=== PATIENT | male | born 1995 | race Two or more races ===

== ENCOUNTER 2020-03-18 21:07 | Inpatient (IN) | payer MEDICAID, OTHER ==
[~2020-03-18] VITALS: Ht 162.6 cm; Wt 171.4 kg
[2020-03-18] MEDS ORDERED: methylPREDNISolone SOD SUCC 125 MG/2 ML VL IV ONE (22:15)
[2020-03-18] MEDS ORDERED: cefTRIAXone 1GM/50ML D5W 50 ML IV ONE (22:15)
[2020-03-18] MEDS ORDERED: ASCORBIC ACID 500 MG TAB PO ONE (22:15)
[2020-03-18] MEDS ORDERED: DOXYCYCLINE 100 MG TAB/CAP PO ONE (22:15)
[2020-03-18 23:09] LABS: Basophils # (auto) 0 10 ^3/uL (0-0.2); Basophils % (auto) 0.3 % (0.0-2.0); Eosinophils # (auto) 0.2 10 ^3/uL (0-0.8); Eosinophils % (auto) 4.9 % (0.0-7.0); Hematocrit 44.4 % (41.0-53.0); Hemoglobin 14.5 g/dL (13.5-17.5); Lymphocytes # (auto) 1.1 10 ^3/uL (0.4-5.4); Lymphocytes % (auto) 24.5 % (10.0-50.0); Mean Corpuscular Hemoglobin 28.7 pg (28.0-32.0); Mean Corpuscular Hgb Conc. 32.6 g/dL (32.0-36.0); Mean Corpuscular Volume 87.8 fL (80.0-100.0); Monocytes # (auto) 0.2 10 ^3/uL (0-1.3); Monocytes % (auto) 4.8 % (0.0-12.0); Neutrophils # (auto) 3.1 10 ^3/uL (1.6-8.6); Neutrophils % (auto) 65.5 % (37.0-80.0); Nucleated Red Blood Cells % 0.1 %; Platelet Count (auto) 284 10^3/uL (140-450); Red Blood Cells 5.06 10^6/uL (4.5-5.90); Red Cell Distribution Width 15.7 % (11.8-14.3); White Blood Cell 4.7 10^3/uL (4.4-10.8)
[2020-03-18 23:25] LABS: Alanine Aminotransferase 70 U/L (16-61); Albumin 2.8 g/dL (3.4-5.0); Anion Gap 5 (5-15); Aspartate Aminotransferase 95 U/L (15-37); BUN/Creatinine Ratio 8.1; Blood Urea Nitrogen 6 mg/dL (7-18); Calcium 7.7 mg/dL (8.5-10.1); Carbon Dioxide 30 mmol/L (21-32); Chloride 105 mmol/L (98-107); GFR African American 167 mL/min; GFR Non-African American 138 mL/min; Glucose 92 mg/dL (74-106); Potassium 3.4 mmol/L (3.5-5.1); Sodium 140 mmol/L (136-145)
[2020-03-18 23:34] LABS: Alkaline Phosphatase 68 U/L (45-117); Bilirubin, Total 0.7 mg/dL (0.2-1.0); Total Protein 7.1 g/dL (6.4-8.2)
[2020-03-18] MEDS ORDERED: SODIUM CHLORIDE 0.9% 1,000 ML IV ONE (23:45)
[2020-03-18] MEDS ORDERED: IOHEXOL 350 MG/ML 100ML IJ ONE (23:53)
[2020-03-19] MEDS ORDERED: diphenhdrAMINE HCL 50 MG/1 ML VL IV ONE (00:30)
[2020-03-19] MEDS ORDERED: methylPREDNISolone SOD SUCC 125 MG/2 ML VL IV ONE (00:45)
[2020-03-19] MEDS ORDERED: AZITHROMYCIN 500MG/ 250ML 250 ML IV ONE (01:45)
[2020-03-19] MEDS ORDERED: ENOXAPARIN SOD 100 MG/1 ML SYRINGE SC ONE (01:45)
[2020-03-19] MEDS ORDERED: LORazepam 2MG/ML-1ML VIAL IV ONE (02:30)
[2020-03-19] MEDS ORDERED: ACETAMINOPHEN 500 MG TAB PO PRN (02:45)
[2020-03-19] MEDS ORDERED: DOCUSATE SOD 100 MG CAP PO PRN (02:45)
[2020-03-19] MEDS ORDERED: MORPHINE SULF INJ 2 MG/ML SYRINGE 1ML IV PRN (02:45)
[2020-03-19] MEDS ORDERED: HYDROcodone-ACET 5/325MG TAB PO PRN (02:45)
[2020-03-19] MEDS ORDERED: NITROGLYCERIN 0.4 MG SL TAB SL PRN (02:45)
[2020-03-19] MEDS ORDERED: ONDANSETRON HCL 4 MG/2 ML VIAL IV PRN (02:45)
[2020-03-19] MEDS ORDERED: POTASSIUM CHL 20 Meq TABLET PO ONE (03:00)
[2020-03-19 03:55] LABS: Magnesium 2.9 mg/dL (1.6-2.6)
[2020-03-19 04:03] LABS: CRP High Sensitivity 3.16 mg/dL (< 0.3)
[2020-03-19] MEDS: ALBUTEROL SULF HFA 90MCG INH 200DOSE IN SCH ×3 (06:00→22:26)
[2020-03-19 06:11] LABS: Urine Bacteria NONE SEEN /hpf (None Seen); Urine Blood Negative /uL (Negative); Urine WBC 3 /hpf (0 - 3)
[2020-03-19] MEDS: SODIUM CHLOR 0.9% PF (SALINE LOCK) 10ML VIAL/SYR IV SCH ×3 (06:18→21:55)
[2020-03-19 06:50] LABS: Alcohol, Urine < 3.0 mg/dL (0-10); Amphetamine Screen, Urine NEGATIVE (NEGATIVE); Barbiturate Scree,Urine NEGATIVE (NEGATIVE); Benzodiazephine Screen, Urine NEGATIVE (NEGATIVE); Cannabinoid Screen, Urine NEGATIVE (NEGATIVE); Cocaine Screen, Urine NEGATIVE (NEGATIVE); Opiate Scree,Urine NEGATIVE (NEGATIVE); Phencyclidine Screen, Urine NEGATIVE (NEGATIVE)
[2020-03-19 07:20] LABS: Basophils # (auto) 0 10 ^3/uL (0-0.2); Basophils % (auto) 0.4 % (0.0-2.0); Eosinophils # (auto) 0.1 10 ^3/uL (0-0.8); Eosinophils % (auto) 1.4 % (0.0-7.0); Hematocrit 45.9 % (41.0-53.0); Hemoglobin 14.8 g/dL (13.5-17.5); Lymphocytes # (auto) 0.6 10 ^3/uL (0.4-5.4); Lymphocytes % (auto) 13.3 % (10.0-50.0); Mean Corpuscular Hemoglobin 28.4 pg (28.0-32.0); Mean Corpuscular Hgb Conc. 32.3 g/dL (32.0-36.0); Monocytes # (auto) 0.1 10 ^3/uL (0-1.3); Monocytes % (auto) 2.4 % (0.0-12.0); Neutrophils # (auto) 3.7 10 ^3/uL (1.6-8.6); Neutrophils % (auto) 82.5 % (37.0-80.0); Nucleated Red Blood Cells % 0.4 %; Platelet Count (auto) 296 10^3/uL (140-450); Red Blood Cells 5.22 10^6/uL (4.5-5.90); Red Cell Distribution Width 15.7 % (11.8-14.3); White Blood Cell 4.5 10^3/uL (4.4-10.8)
[2020-03-19 07:22] LABS: BUN/Creatinine Ratio 8.8; Calcium 8.1 mg/dL (8.5-10.1); Magnesium 2.7 mg/dL (1.6-2.6); Potassium 3.9 mmol/L (3.5-5.1)
[2020-03-19] MEDS: DOXYCYCLINE 100MG/250ML 250 ML IV SCH ×2 (10:00→21:56)
[2020-03-19] MEDS: ENOXAPARIN SOD 40 MG/0.4 ML SYRINGE SC SCH (10:00)
[2020-03-19] MEDS ORDERED: ENOXAPARIN SOD 40 MG/0.4 ML SYRINGE SC SCH (10:00)
[2020-03-19] MEDS: DexAMETHasone SOD PHOS 10MG/1ML VIAL INJ IV SCH (10:00)
[2020-03-19] MEDS: MULTIPLE VITAMIN TAB PO SCH (10:00)
[2020-03-19] MEDS: ZINC SULFATE 220mg CAP or TAB PO SCH (10:00)
[2020-03-19] MEDS: CHOLECALCIFEROL (VITD3) 2,000 UNIT CAP PO SCH (10:00)
[2020-03-19] MEDS: BUDESONIDE (INHALATION) 180 MCG IH IN SCH ×2 (10:00→21:34)
[2020-03-19] MEDS: ASCORBIC ACID 1,000 MG TAB PO SCH (10:00)
[2020-03-19] MEDS: FAMOTIDINE 20 MG TAB PO SCH ×2 (10:00→21:55)
[2020-03-19] MEDS ORDERED: FUROSEMIDE 20 MG/2 ML VIAL IV ONE (14:30)
[2020-03-19 17:03] VITALS: BP 166/78
--- NOTE | 2020-03-19 19:45 | NUR ---
Opening Shift Note Assumed care of patient, awake and alert. No S/S of distress/SOB or pain. Instructed on POC and to call for assist PRN, will continue to monitor for changes Q1hr and PRN.
[2020-03-19 20:00] VITALS: BP 113/68
[2020-03-19 22:00] VITALS: BP 113/68
--- NOTE | 2020-03-19 22:50 | NUR ---
Sleeping Pill Patient requested a sleeping pill. [employer] hospitalist Jignesh hospitalist ordered Temazepam 15mg PO PRN HS.
[2020-03-20] VITALS (11 sets, daily range): BP systolic 102–135; BP diastolic 46–81
--- NOTE | 2020-03-20 03:17 | NUR ---
Convalescent Plasma Patient agreed to convalescent plasma, sign consents. Initial vitals take (check emar).
[2020-03-20] MEDS: SODIUM CHLOR 0.9% PF (SALINE LOCK) 10ML VIAL/SYR IV SCH ×3 (06:00→21:19)
--- NOTE | 2020-03-20 06:47 | NUR ---
Post 1hr Convalescent Plasma Patient tolerated transfusion well. See eMAR for vitals.
[2020-03-20] MEDS: BUDESONIDE (INHALATION) 180 MCG IH IN SCH ×2 (06:51→21:58)
[2020-03-20] MEDS: ALBUTEROL SULF HFA 90MCG INH 200DOSE IN SCH ×3 (06:51→21:58)
[2020-03-20 07:31] LABS: Calcium 8.5 mg/dL (8.5-10.1)
[2020-03-20 07:33] LABS: Basophils # (auto) 0 10 ^3/uL (0-0.2); Basophils % (auto) 0.1 % (0.0-2.0); Eosinophils # (auto) 0 10 ^3/uL (0-0.8); Hematocrit 41.2 % (41.0-53.0); Hemoglobin 13.5 g/dL (13.5-17.5); Lymphocytes # (auto) 1.1 10 ^3/uL (0.4-5.4); Lymphocytes % (auto) 16.9 % (10.0-50.0); Mean Corpuscular Hemoglobin 28.8 pg (28.0-32.0); Mean Corpuscular Hgb Conc. 32.7 g/dL (32.0-36.0); Monocytes # (auto) 0.7 10 ^3/uL (0-1.3); Monocytes % (auto) 10.5 % (0.0-12.0); Neutrophils # (auto) 4.7 10 ^3/uL (1.6-8.6); Neutrophils % (auto) 72.5 % (37.0-80.0); Nucleated Red Blood Cells % 0.4 %; Platelet Count (auto) 333 10^3/uL (140-450); Red Blood Cells 4.68 10^6/uL (4.5-5.90); Red Cell Distribution Width 15.3 % (11.8-14.3); White Blood Cell 6.4 10^3/uL (4.4-10.8)
[2020-03-20 07:34] LABS: BUN/Creatinine Ratio 19.4
[2020-03-20 07:46] LABS: Bilirubin, Total 0.7 mg/dL (0.2-1.0); Total Protein 7.1 g/dL (6.4-8.2)
--- NOTE | 2020-03-20 07:50 | NUR ---
OPENING NOTE ASSUMED CARE OF PT. ALERT AND ORIENTED. NO S/S OF SOB/DISTRESS NOTED. BED SET TO LOWEST POSITION/LOCKED. BEDSIDE RAILS UP X2, CALL LIGHT WITHIN REACH. INSTRUCTED PT TO CALL FOR ASSISTANCE. UPDATED ON POC. PT VERBALIZED UNDERSTANDING. WILL CONTINUE TO MONITOR Q 1HR AND PRN FOR CHANGES.
[2020-03-20] MEDS: DexAMETHasone SOD PHOS 10MG/1ML VIAL INJ IV SCH (09:56)
[2020-03-20] MEDS: FAMOTIDINE 20 MG TAB PO SCH ×2 (09:57→21:19)
[2020-03-20] MEDS: ZINC SULFATE 220mg CAP or TAB PO SCH (09:57)
[2020-03-20] MEDS: DOXYCYCLINE 100MG/250ML 250 ML IV SCH ×2 (09:57→21:19)
[2020-03-20] MEDS: FUROSEMIDE 20 MG/2 ML VIAL IV SCH (09:57)
[2020-03-20] MEDS: MULTIPLE VITAMIN TAB PO SCH (09:57)
[2020-03-20] MEDS: ASCORBIC ACID 1,000 MG TAB PO SCH (09:58)
[2020-03-20] MEDS: CHOLECALCIFEROL (VITD3) 2,000 UNIT CAP PO SCH (09:58)
[2020-03-20] MEDS: ENOXAPARIN SOD 40 MG/0.4 ML SYRINGE SC SCH (09:58)
--- NOTE | 2020-03-20 14:41 | NUR ---
Respiratory note: FOUND PATIENT ON 7L N/C. WITH EXTENSION. DECREASED TO 4L N/C. SPO2 95%
[2020-03-20] MEDS: TEMAZEPAM 15 MG CAP PO PRN (21:19)
[2020-03-21 05:00] VITALS: BP 124/81
[2020-03-21] MEDS: SODIUM CHLOR 0.9% PF (SALINE LOCK) 10ML VIAL/SYR IV SCH ×3 (06:23→21:44)
[2020-03-21 06:50] LABS: Basophils # (auto) 0 10 ^3/uL (0-0.2); Basophils % (auto) 0.4 % (0.0-2.0); Eosinophils # (auto) 0 10 ^3/uL (0-0.8); Eosinophils % (auto) 0.3 % (0.0-7.0); Hematocrit 42.3 % (41.0-53.0); Hemoglobin 13.7 g/dL (13.5-17.5); Lymphocytes # (auto) 1.4 10 ^3/uL (0.4-5.4); Lymphocytes % (auto) 21.2 % (10.0-50.0); Mean Corpuscular Hemoglobin 28.6 pg (28.0-32.0); Mean Corpuscular Hgb Conc. 32.3 g/dL (32.0-36.0); Mean Corpuscular Volume 88.4 fL (80.0-100.0); Monocytes # (auto) 0.6 10 ^3/uL (0-1.3); Monocytes % (auto) 8.9 % (0.0-12.0); Neutrophils # (auto) 4.5 10 ^3/uL (1.6-8.6); Neutrophils % (auto) 69.2 % (37.0-80.0); Nucleated Red Blood Cells % 0.2 %; Platelet Count (auto) 364 10^3/uL (140-450); Red Blood Cells 4.78 10^6/uL (4.5-5.90); Red Cell Distribution Width 15.8 % (11.8-14.3); White Blood Cell 6.5 10^3/uL (4.4-10.8)
[2020-03-21 06:59] LABS: BUN/Creatinine Ratio 26.2; Calcium 8.7 mg/dL (8.5-10.1); Potassium 3.9 mmol/L (3.5-5.1)
[2020-03-21] MEDS: ALBUTEROL SULF HFA 90MCG INH 200DOSE IN SCH ×3 (07:25→21:55)
[2020-03-21] MEDS: BUDESONIDE (INHALATION) 180 MCG IH IN SCH ×2 (07:25→21:55)
--- NOTE | 2020-03-21 07:30 | NUR ---
opening note Assumed care of patient from NOC RN Suzi. No s/s of distress noted. Bed is in lowest locked position, call light is within reach and side rails up x2. Updated patient on plan of care and patient verbalized understanding. Will continue to monitor q1hr and PRN.
[2020-03-21 08:34] VITALS: BP 141/69
[2020-03-21] MEDS: DexAMETHasone SOD PHOS 10MG/1ML VIAL INJ IV SCH (10:18)
[2020-03-21] MEDS: ZINC SULFATE 220mg CAP or TAB PO SCH (10:19)
[2020-03-21] MEDS: FUROSEMIDE 20 MG/2 ML VIAL IV SCH (10:19)
[2020-03-21] MEDS: DOXYCYCLINE 100MG/250ML 250 ML IV SCH ×2 (10:19→21:44)
[2020-03-21] MEDS: ASCORBIC ACID 1,000 MG TAB PO SCH (10:20)
[2020-03-21] MEDS: ENOXAPARIN SOD 40 MG/0.4 ML SYRINGE SC SCH (10:20)
[2020-03-21] MEDS: FAMOTIDINE 20 MG TAB PO SCH ×2 (10:20→21:44)
[2020-03-21] MEDS: MULTIPLE VITAMIN TAB PO SCH (10:20)
[2020-03-21] MEDS: CHOLECALCIFEROL (VITD3) 2,000 UNIT CAP PO SCH (10:21)
--- NOTE | 2020-03-21 12:50 | NUR ---
physician rounding Dr. Pollock at bedside. MD updated patient on plan of care, and patient verbalized understanding. New orders received, will follow through.
[2020-03-21 13:00] VITALS: BP 121/76
[2020-03-21 17:12] VITALS: BP 126/85
--- NOTE | 2020-03-21 18:37 | NUR ---
OXYGEN ASSESSMENT Patient sating at 89-92% on room air. No s/s of distress noted. On o2, 1.5 L patient satting in 94%.
--- NOTE | 2020-03-21 19:10 | NUR ---
end of shift note Endorsed care to NOC RN. No s/s of distress noted.
[2020-03-21 20:00] VITALS: BP 119/73
[2020-03-21] MEDS: TEMAZEPAM 15 MG CAP PO PRN (21:44)
[2020-03-22] MEDS: SODIUM CHLOR 0.9% PF (SALINE LOCK) 10ML VIAL/SYR IV SCH ×2 (06:06→14:00)
[2020-03-22 06:26] VITALS: BP 112/67
[2020-03-22] MEDS: BUDESONIDE (INHALATION) 180 MCG IH IN SCH (06:31)
[2020-03-22] MEDS: ALBUTEROL SULF HFA 90MCG INH 200DOSE IN SCH ×2 (06:31→14:48)
[2020-03-22 06:59] LABS: Basophils # (auto) 0 10 ^3/uL (0-0.2); Basophils % (auto) 0.3 % (0.0-2.0); Eosinophils # (auto) 0.1 10 ^3/uL (0-0.8); Eosinophils % (auto) 0.8 % (0.0-7.0); Hematocrit 43.7 % (41.0-53.0); Hemoglobin 14.4 g/dL (13.5-17.5); Lymphocytes # (auto) 1.8 10 ^3/uL (0.4-5.4); Lymphocytes % (auto) 25.5 % (10.0-50.0); Mean Corpuscular Hemoglobin 28.7 pg (28.0-32.0); Mean Corpuscular Hgb Conc. 32.9 g/dL (32.0-36.0); Mean Corpuscular Volume 87.2 fL (80.0-100.0); Monocytes # (auto) 0.6 10 ^3/uL (0-1.3); Monocytes % (auto) 9.2 % (0.0-12.0); Neutrophils # (auto) 4.4 10 ^3/uL (1.6-8.6); Neutrophils % (auto) 64.2 % (37.0-80.0); Nucleated Red Blood Cells % 0.2 %; Platelet Count (auto) 388 10^3/uL (140-450); Red Blood Cells 5.01 10^6/uL (4.5-5.90); Red Cell Distribution Width 15.3 % (11.8-14.3); White Blood Cell 6.9 10^3/uL (4.4-10.8)
[2020-03-22 07:26] LABS: BUN/Creatinine Ratio 22.7; Calcium 8.7 mg/dL (8.5-10.1); Potassium 3.9 mmol/L (3.5-5.1)
--- NOTE | 2020-03-22 07:45 | NUR ---
Opening note assumed care of patient from patient from NOC RN. No s/s of distress noted, patient up and ambulating in room. Bed is in lowest locked position, call light within reach, and side rails up x2. Updated patient on plan of care and patient verbalized understanding. Will continue to monitor.
[2020-03-22 08:42] VITALS: BP 127/53
[2020-03-22] MEDS: DOXYCYCLINE 100MG/250ML 250 ML IV SCH (11:28)
[2020-03-22] MEDS: DexAMETHasone SOD PHOS 10MG/1ML VIAL INJ IV SCH (11:28)
[2020-03-22] MEDS: MULTIPLE VITAMIN TAB PO SCH (11:29)
[2020-03-22] MEDS: ZINC SULFATE 220mg CAP or TAB PO SCH (11:29)
[2020-03-22] MEDS: FAMOTIDINE 20 MG TAB PO SCH (11:29)
[2020-03-22] MEDS: ASCORBIC ACID 1,000 MG TAB PO SCH (11:30)
[2020-03-22] MEDS: ENOXAPARIN SOD 40 MG/0.4 ML SYRINGE SC SCH (11:30)
[2020-03-22] MEDS: CHOLECALCIFEROL (VITD3) 2,000 UNIT CAP PO SCH (11:30)
--- NOTE | 2020-03-22 12:19 | NUR ---
doroteo GARZA Placed page to Dr. Pollock. Awaiting call back.
--- NOTE | 2020-03-22 12:21 | NUR ---
Call back Received call back from MD. Updated MD that patient's IV is not functioning and patient was receiving antibiotics, per MD patient will be D/C today and antibiotics can be held for now. Per ABG should be done now before D/C, will page RT.
--- NOTE | 2020-03-22 12:24 | NUR ---
Paged RT Paged Rt, awaiting call back.
--- NOTE | 2020-03-22 12:32 | NUR ---
Call back Received call back from RT. Informed them that MD wants ABGs done prior to DC, per RT they will be in at 1300 to draw labs.
[2020-03-22 12:44] VITALS: BP 127/66
--- NOTE | 2020-03-22 12:45 | NUR ---
Physician rounding Dr. Pollock at bedside. MD updated patient on plan of care and patient is clear for D/C. Patient verbalized understanding. Will follow through with new orders.
--- NOTE | 2020-03-22 12:55 | NUR ---
IV removal IV DC'd with clean sterile technique, catheter fully intact. Pressure dressing applied to site. Patient tolerated well.
[2020-03-22] MEDS ORDERED: DOXY-286 PO (14:28)
[2020-03-22] MEDS ORDERED: ASCO10003 PO (14:28)
--- NOTE | 2020-03-22 14:31 | NUR ---
Nutrition Assessment Notes Please refer to link for full assessment notes. Est Energy needs: 9140-6628 kcals (12-15 kcal/kgBW) Est Protein needs: 118-148 gms/day (2.0-2.5 gm/kgIBW 59kg) Will continue to monitor and reassess prn. Addendum: 03/22/20 at [address] Amended: Links added.
[2020-03-22 15:18] VITALS: BP 127/66
--- NOTE | 2020-03-22 16:44 | NUR ---
Discharge noted Discharge instructions given as ordered. Encourage to follow up with PMD as instructed. All questions and concerns addressed. Patient verbalized understanding. IV removed with catheter intact, pressure dressing applied. Telemetry unit returned to ICU. Patient ambulated to vehicle with COVID-19 protocol, with all personal belongings, accompanied by staff member. No distress noted at time of departure.
== END 2020-03-22 16:45 | disposition home or self-care (01) | DRG 137 ==
LOC: ER 21:09 → EDSEX 21:09 → TELE 21:10 → TELE-E-ADS 03-19 13:37 → TELE-EAST 03-21 20:05 → TELE-E-ADS 03-21 20:30
PROVIDERS: ADMIT Nurse Practitioner Family; ATTEND Internal Medicine Pulmonary Disease
PROC: XW13325 Transfusion of Convalescent Plasma (Nonautologous) into Peripheral Vein, Percutaneous Approach, New Technology Group 5 (ICD-10-PCS; principal; 2020-03-20)
DX: U07.1 COVID-19 (principal); J12.89 Other viral pneumonia; J96.01 Acute respiratory failure with hypoxia; D73.89 Other diseases of spleen; J45.901 Unspecified asthma with (acute) exacerbation; E66.01 Morbid (severe) obesity due to excess calories; E87.6 Hypokalemia; R79.89 Other specified abnormal findings of blood chemistry; Z68.44 Body mass index [BMI] 60.0-69.9, adult; Z91.013 Allergy to seafood; K40.90 Unilateral inguinal hernia, without obstruction or gangrene, not specified as recurrent; K76.0 Fatty (change of) liver, not elsewhere classified
CPT/HCPCS: 36415; 71045; 71260; 74177; 80048; 80053; 80307; 81001; 82728; 83605; 83615; 83735; 83880; 84443; 84484; 85025; 85379; 86141; 86850; 86900; 86901; 87040; 87426; 93005; 94640; 96365; 96367; 96372; 96375; G0378; J0696; J1100; J3490